=== PATIENT | male | born 1930 | race Caucasian/White ===

== ENCOUNTER 2017-08-07 01:06 | Inpatient (IN) | payer OTHER, MEDICARE ==
[2017-08-07] VITALS (14 sets, daily range): BP systolic 109–129; BP diastolic 60–65; PULSE 74–102; RESP 16–30; TEMP 97.1–99; O2SAT 95–100
[2017-08-07] MEDS: SODIUM CHLOR 0.9% 1000 ML INJ 1,000 ML IV SCH ×3 (02:36→20:48)
[2017-08-07] MEDS ORDERED: LACTULOSE SYRUP 20 GM/30 ML CUP PO PRN (02:45)
[2017-08-07] MEDS ORDERED: CHLORHEXIDINE GLUCONATE 2 % 1 PACK (2 CLOTHS) TOP PRN (02:45)
[2017-08-07] MEDS ORDERED: SODIUM CHLORIDE 0.9% FLUSH 10 ML FLUSH IV FLUSH PRN (02:45)
[2017-08-07] MEDS ORDERED: BISACODYL 10 MG SUPP RECTAL PRN (02:45)
[2017-08-07] MEDS ORDERED: MORPHINE SULFATE 2 MG/ML INJ IV PUSH PRN (02:45)
[2017-08-07] MEDS ORDERED: SENNOSIDES 8.6 MG TAB PO PRN (02:45)
[2017-08-07] MEDS ORDERED: ONDANSETRON HCL 4 MG/2 ML VIAL IV PUSH PRN (02:45)
[2017-08-07] MEDS ORDERED: MISCELLANEOUS NURSING INFORMATION XX SCH (02:45)
[2017-08-07] MEDS ORDERED: MAGNESIUM HYDROXIDE SUSP 30 ML CUP PO PRN (02:45)
[2017-08-07] MEDS ORDERED: LORazepam 2 MG/ML VIAL IV PUSH PRN (02:45)
[2017-08-07] MEDS ORDERED: ACETAMINOPHEN 325 MG TAB PO PRN (02:45)
[2017-08-07] MEDS ORDERED: RESP: ALBUTEROL 2.5 MG/IPRATROPIUM 0.5 MG NEB (PRN) INH (02:45)
--- NOTE | 2017-08-07 02:49 | HHI.HP ---
HPI Service Critical Care Medicine Primary Care Physician Aishwarya Powell DO Admission Diagnosis Diagnosis: Travel History International Travel<30 Days: No Contact w/Intl Traveler <30 Da: No Traveled to Known Affected Are: No History of Present Illness 87-year-old very pleasant gentleman with a history of hypertension, atrial fibrillation on Xarelto, COPD, lung cancer presented to emergency department at [facility] on July 25 with shortness of breath, cough and productive yellowish sputum, progressive weakness in the x-ray showing infiltrates in left lower lobes as well as the right upper. He was treated as pneumonia in an immunocompromised patient. While there he was noted to have increasing lethargy , that led to a CT scan of the head which revealed 0.7 cm right subdural hematoma with midline shift. He was transferred to intensive care unit, given vitamin K and FFP's. The case was discussed with [facility] neurosurgeon personal finance instructor Dr. Jasmine and the patient has been transferred for high level of care. Prior to transfer he received a dose of Kcentra. Review of Systems ROS Unable to obtain patient is lethargic Past Family Social History Allergies: Coded Allergies: No Known Allergies (Unverified , 08/07/17) Past Medical History Hypertension Atrial fibrillation on Xarelto COPD Lung cancer Seizure disorder Mild dementia Past Surgical History Colonoscopy Hernia repair Mastoid and middle ear procedure Tonsillectomy Vasectomy Reported Medications Albuterol DuoNeb Allopurinol Diltiazem Aricept Fluticasone Keppra Levothyroxine Phenobarbital Xarelto Potassium chloride Torsemide Active Ordered Medications Current Medications Medications (Trade) Dose Ordered Sig/Elda Route PRN Reason Start Time Stop Time Status Last Admin Dose Admin Sodium Chloride 1,000 ml @ 84 mls/hr [id number] IV 08/07/17 02:36 08/07/17 02:36 Sodium Chloride (NS Flush) 2 ml UNSCH PRN IV FLUSH FLUSH AFTER USING IV ACCESS 08/07/17 02:45 Sodium Chloride (NS Flush) 2 ml BID IV FLUSH 08/07/17 09:00 Acetaminophen (Tylenol) 650 mg Q6H PRN PO PAIN 1-5 AND/OR FEVER >101F 08/07/17 02:45 Morphine Sulfate (Morphine Inj) 2 mg Q2H PRN IV PUSH PAIN SCALE 6 TO 10 08/07/17 02:45 Famotidine (Pepcid Inj) 20 mg Q12HR IV PUSH 08/07/17 09:00 Lorazepam (Ativan Inj) 1 mg Q1H PRN IV PUSH seizure 08/07/17 02:45 Ondansetron HCl (Zofran Inj) 4 mg Q6H PRN IV PUSH NAUSEA OR VOMITING 08/07/17 02:45 Albuterol/ Ipratropium (Duoneb Neb) 1 ampule Q6HR NEB INH 08/07/17 04:00 08/07/17 03:26 Albuterol/ Ipratropium (Duoneb Neb) 1 ampule Q2HR NEB PRN INH WHEEZING 08/07/17 02:45 Miscellaneous Information 1 Q361D XX 08/07/17 02:45 Chlorhexidine Gluconate (Chlorhexidine 2% Cloth) 3 pack Taper DAILY@04 TOP 08/07/17 04:00 08/03/18 03:59 Chlorhexidine Gluconate (Chlorhexidine 2% Cloth) 3 pack UNSCH PRN TOP HYGIENIC CARE 08/07/17 02:45 Senna/Docusate Sodium (Serena-Colace) 1 tab BID PO 08/07/17 09:00 Magnesium Hydroxide (Milk Of Magnesia Liq) 30 ml Q12H PRN PO Mild constipation 08/07/17 02:45 Sennosides (Senokot) 17.2 mg Q12H PRN PO Moderate constipation 08/07/17 02:45 Bisacodyl (Dulcolax Supp) 10 mg DAILY PRN RECTAL SEVERE CONSITIPATION/ IF NPO 08/07/17 02:45 Lactulose (Lactulose Liq) 30 ml DAILY PRN PO SEVERE CONSITIPATION/ IF PO 08/07/17 02:45 Levetriacetam 100 ml @ 400 mls/hr Q12HR IV 08/07/17 09:00 Allopurinol (Zyloprim) 300 mg DAILY PO 08/07/17 09:00 Diltiazem HCl (Cardizem) 60 mg Q6HR PO 08/07/17 06:00 Donepezil HCl (Aricept) 10 mg HS PO 08/07/17 21:00 Fluticasone/ Vilanterol (Breo Ellipta 200-25 Inh) 1 puff DAILY INH 08/07/17 09:00 Levothyroxine Sodium (Synthroid) 100 mcg DAILY@0700 PO 08/07/17 07:00 Phenobarbital (PHENobarbital) 60 mg DAILY PO 08/07/17 09:00 Phenobarbital (PHENobarbital) 90 mg HS PO 08/07/17 21:00 Vancomycin HCl 1000 mg/Sodium Chloride 250 ml @ 250 mls/hr ONCE ONCE IV 08/07/17 04:00 08/07/17 04:59 Piperacillin Sod/ Tazobactam Sod 100 ml @ 200 mls/hr Q6H IV 08/07/17 03:00 08/07/17 03:00 Family History No family history significant for coronary artery disease or malignancy Social History Former smoker No alcohol or illicit drug abuse Physical Exam Vital Signs Vital Signs Date Time Temp Pulse Resp B/P (MAP) Pulse Ox O2 Delivery O2 Flow Rate FiO2 08/07/17 03:28 95 Nasal Cannula 4.00 Physical Exam GENERAL: Well-nourished, well-developed patient elderly gentleman, lethargic and confused. SKIN: Warm and dry. HEAD: Normocephalic. EYES: No scleral icterus. No injection or drainage. NECK: Supple, trachea midline. No JVD or lymphadenopathy. CARDIOVASCULAR: Regular rate and rhythm without murmurs, gallops, or rubs. RESPIRATORY: Breath sounds equal bilaterally. No accessory muscle use. Comfortable on facemask O2 GASTROINTESTINAL: Abdomen soft, non-tender, nondistended. MUSCULOSKELETAL: No cyanosis, or edema. BACK: Nontender without obvious deformity. NEURO EXAM: GCS: 14 Mental Status: Moves all 4 extremities to commands, lethargic Laboratory Laboratory Tests Test 08/07/17 03:26 08/07/17 04:29 Septic Shock Reassessment Septic shock perfusion: reassessment completed Caprini VTE Risk Assessment Caprini VTE Risk Assessment: Mod/High Risk (score >= 2) VTE Pharm Contraindication: Hemorrhage Caprini Risk Assessment Model Point Value = 1 Point Value = 2 Point Value = 3 Point Value = 5 Age 41-60 Minor surgery BMI > 25 kg/m2 Swollen legs Varicose veins or History of unexplained or recurrent spontaneous Oral contraceptives or hormone replacement Sepsis (< 1 month) Serious lung disease, including pneumonia (< 1 month) Abnormal pulmonary function Acute myocardial infarction Congestive heart failure (< 1 month) History of inflammatory bowel disease Medical patient at bed rest Age 61-74 Arthroscopic surgery Major open surgery (> 45 min) Laparoscopic surgery (> 45 min) Malignancy Confined to bed (> 72 hours) Immobilizing plaster cast Central venous access Age >= 75 History of VTE Family history of VTE Factor V Leiden Prothrombin [id number] Lupus anticoagulant Anticardiolipin antibodies Elevated serum homocysteine Heparin-induced thrombocytopenia Other congenital or acquired thrombophilia Stroke (< 1 month) Elective arthroplasty Hip, pelvis, or leg fracture Acute spinal cord injury (< 1 month) Prophylaxis Regimen Total Risk Factor Score Risk Level Prophylaxis Regimen 0-1 Low Early ambulation 2 Moderate Order ONE of the following: *Sequential Compression Device (SCD) *Heparin 5000 units SQ BID 3-4 Higher Order ONE of the following medications: *Heparin 5000 units SQ TID *Enoxaparin/Lovenox 40 mg SQ daily (WT < 150 kg, CrCl > 30 mL/min) *Enoxaparin/Lovenox 30 mg SQ daily (WT < 150 kg, CrCl > 10-29 mL/min) *Enoxaparin/Lovenox 30 mg SQ BID (WT < 150 kg, CrCl > 30 mL/min) AND/OR *Sequential Compression Device (SCD) 5 or more Highest Order ONE of the following medications: *Heparin 5000 units SQ TID (Preferred with Epidurals) *Enoxaparin/Lovenox 40 mg SQ daily (WT < 150 kg, CrCl > 30 mL/min) *Enoxaparin/Lovenox 30 mg SQ daily (WT < 150 kg, CrCl > 10-29 mL/min) *Enoxaparin/Lovenox 30 mg SQ BID (WT < 150 kg, CrCl > 30 mL/min) AND *Sequential Compression Device (SCD) Assessment and Plan Assessment and Plan Subdural hematoma - Repeat CT head a.m. - Reverse anticoagulation - Monitor neuro checks per unit protocol - PT and OT eval and treat as tolerated - Further per neurosurgery Pneumonia - Vancomycin - Zosyn - Follow-up sputum cultures and blood cultures COPD - Severe underlying COPD - DuoNeb scheduled and when necessary - Fluticasone spray daily Atrial fibrillation - Diltiazem for rate control - No anticoagulation due to acute SDH Hypertension - Labetalol hydralazine when necessary to keep SBP less than 150 Seizure disorder - Keppra - Phenobarbital - Monitor phenobarbital level DVT GI prophylaxis - Teds SCDs - No pharmacological DVT prophylaxis due to acute SDH - IV Pepcid Critical Care: The total critical care time was 35 minutes. Time to perform other separately billable procedures was not included in the critical care time. Ba Masters MD Aug 07, 2017 2:49 am
[2017-08-07] MEDS: PIPERACIL-TAZO 4.5 GM PREMIX 100 ML IV SCH ×4 (03:00→20:45)
[2017-08-07] MEDS: CHLORHEXIDINE GLUCONATE 2 % 1 PACK (2 CLOTHS) TOP SCH ×2 (03:11→19:57)
[2017-08-07] MEDS: RESP: ALBUTEROL 2.5 MG/IPRATROPIUM 0.5 MG NEB (SCH) INH ×4 (03:26→20:48)
[2017-08-07] MEDS ORDERED: VANCOMYCIN INJ 1,000 MG in SODIUM CHLORIDE 0.9% INJ 250 ML IV ONE (04:00)
[2017-08-07 04:44] LABS: AUTOMATED NEUTROPHIL # 4.8 TH/MM3 (1.8-7.7); BASOPHIL % 0.4 % (0.0-2.0); EOSINOPHIL # 0.1 TH/MM3 (0-0.4); EOSINOPHIL % 1.2 % (0.0-4.0); HEMATOCRIT 32.9 % (39.0-51.0); HEMOGLOBIN 11.2 GM/DL (13.0-17.0); LYMPH % 8.9 % (9.0-44.0); LYMPHOCYTE # 0.5 TH/MM3 (1.0-4.8); MEAN CELL VOLUME 102.9 FL (80.0-100.0); MEAN PLATELET VOLUME 8.2 FL (7.0-11.0); MONO % 9.6 % (0.0-8.0); MONOCYTE # 0.6 TH/MM3 (0-0.9); NEUT % 79.9 % (16.0-70.0); PLATELET COUNT 140 TH/MM3 (150-450); RED CELL DISTRIBUTION WIDTH 17.9 % (11.6-17.2); WHITE BLOOD COUNT 6.1 TH/MM3 (4.0-11.0)
[2017-08-07 04:51] LABS: INTERNATIONAL NORMALIZED RATIO 1.3 RATIO; PROTHROMBIN TIME - PATIENT 12.7 SEC (9.8-11.6)
[2017-08-07 05:09] LABS: ALBUMIN 3.1 GM/DL (3.4-5.0); AST (GOT) 25 U/L (15-37); BICARBONATE 34.7 MEQ/L (21.0-32.0); BLOOD UREA NITROGEN 17 MG/DL (7-18); CALCIUM 8.9 MG/DL (8.5-10.1); CHLORIDE 99 MEQ/L (98-107); CREATININE 0.79 MG/DL (0.60-1.30); GLOMERULAR FILTRATION RATE 93 ML/MIN (>89); GLUCOSE,RANDOM 88 MG/DL (74-106); MAGNESIUM 2.3 MG/DL (1.5-2.5); SODIUM (NA) 139 MEQ/L (136-145)
[2017-08-07 05:10] LABS: ALT (GPT) 25 U/L (12-78)
[2017-08-07 05:12] LABS: ALKALINE PHOSPHATASE 165 U/L (45-117); PHOSPHORUS 2.3 MG/DL (2.5-4.9); TOTAL BILIRUBIN ADULT 0.4 MG/DL (0.2-1.0); TOTAL PROTEIN 7.5 GM/DL (6.4-8.2)
[2017-08-07] MEDS: DILTIAZEM HCL 60 MG TAB PO SCH ×3 (06:04→18:00)
[2017-08-07] MEDS: LEVOTHYROXINE SODIUM 100 MCG TAB PO SCH (06:04)
--- NOTE | 2017-08-07 06:12 | RADRPT ---
EXAM DATE/TIME: 08/07/2017 05:25 [facility] COMPARISON: No previous studies available for comparison. INDICATIONS : Short of breath. MEDICAL HISTORY : None. SURGICAL HISTORY : None. ENCOUNTER: Initial ACUITY: 1 day PAIN SCORE: 0/10 LOCATION: Bilateral chest FINDINGS: Ill-defined non-consolidative airspace infiltrate in the right upper lung. Hazy opacity at the right lung base with loss of delineation of the right hemidiaphragm suggesting associated pleural effusion . Some patchy infiltrates at the left lung base. The heart is upper limits normal size. CONCLUSION: Bilateral infiltrates, right upper and left lower, and probable right pleural effusion. Aden Ramirez MD on August 07, 2017 at 6:10 Board Certified Radiologist. This report was verified electronically.
--- NOTE | 2017-08-07 09:10 | PD.CONS ---
(Stew Jasmine MD) HPI Consult Requested By Primary Care Physician Aishwarya Powell DO (Stew Jasmine MD) Service Neurosurgery Consult Requested By Intensive care physician Reason for Consult Subdural hematoma History of Present Illness Mr. Cai is a 87-year-old male. History was obtained mostly from his medical records as the patient cannot give much medical history due to his current clinical condition. The patient has history of dementia, hypertension, atrial fibrillation on Xarelto, lung cancer, and COPD. He apparently presented to [facility] a couple weeks ago for pneumonia. During his hospitalization he was noted to become more lethargic and a CT Brain showed a 0.7 cm right subdural hematoma with midline shift and thus was transferred to [place] for neurosurgical evaluation. Prior to his transfer however he was reported to have received a dose of K-Centra. He is currently in the intensive care unit, late morning today prior to seeing the patient, he was noted to have a change in mental status. He underwent a stat CT scan of his head which showed a chronic right subdural hygroma with 5 mm midline shift. The patient is currently confused, lethargic. He is not consistently following commands. (Tete Hogue) Review of Systems ROS Limitations: Altered Mental Status (Tete Hogue) Past Family Social History Allergies: Coded Allergies: No Known Allergies (Unverified , 08/07/17) Past Medical History Per EMR Hypertension Atrial fibrillation on Xarelto COPD Lung cancer Seizure disorder Mild dementia Past Surgical History Per his electronic medical record Colonoscopy Hernia repair Mastoid and middle ear procedure Tonsillectomy Vasectomy Reported Medications Per Reported Medications in his EMR Albuterol DuoNeb Allopurinol Diltiazem Aricept Fluticasone Keppra Levothyroxine Phenobarbital Xarelto Potassium chloride Torsemide Active Ordered Medications Current Medications Medications (Trade) Dose Ordered Sig/Elda Route PRN Reason Start Time Stop Time Status Last Admin Dose Admin Sodium Chloride 1,000 ml @ 84 mls/hr [id number] IV 08/07/17 02:36 08/07/17 02:36 Sodium Chloride (NS Flush) 2 ml UNSCH PRN IV FLUSH FLUSH AFTER USING IV ACCESS 08/07/17 02:45 Sodium Chloride (NS Flush) 2 ml BID IV FLUSH 08/07/17 09:00 08/07/17 09:57 Acetaminophen (Tylenol) 650 mg Q6H PRN PO PAIN 1-5 AND/OR FEVER >101F 08/07/17 02:45 Morphine Sulfate (Morphine Inj) 2 mg Q2H PRN IV PUSH PAIN SCALE 6 TO 10 08/07/17 02:45 Famotidine (Pepcid Inj) 20 mg Q12HR IV PUSH 08/07/17 09:00 08/07/17 09:56 Lorazepam (Ativan Inj) 1 mg Q1H PRN IV PUSH seizure 08/07/17 02:45 08/07/17 14:42 Ondansetron HCl (Zofran Inj) 4 mg Q6H PRN IV PUSH NAUSEA OR VOMITING 08/07/17 02:45 Albuterol/ Ipratropium (Duoneb Neb) 1 ampule Q6HR NEB INH 08/07/17 04:00 08/07/17 07:53 Albuterol/ Ipratropium (Duoneb Neb) 1 ampule Q2HR NEB PRN INH WHEEZING 08/07/17 02:45 Miscellaneous Information 1 Q361D XX 08/07/17 02:45 Chlorhexidine Gluconate (Chlorhexidine 2% Cloth) 3 pack Taper DAILY@04 TOP 08/07/17 04:00 08/03/18 03:59 Chlorhexidine Gluconate (Chlorhexidine 2% Cloth) 3 pack UNSCH PRN TOP HYGIENIC CARE 08/07/17 02:45 Senna/Docusate Sodium (Serena-Colace) 1 tab BID PO 08/07/17 09:00 08/07/17 09:57 Magnesium Hydroxide (Milk Of Magnesia Liq) 30 ml Q12H PRN PO Mild constipation 08/07/17 02:45 Sennosides (Senokot) 17.2 mg Q12H PRN PO Moderate constipation 08/07/17 02:45 Bisacodyl (Dulcolax Supp) 10 mg DAILY PRN RECTAL SEVERE CONSITIPATION/ IF NPO 08/07/17 02:45 Lactulose (Lactulose Liq) 30 ml DAILY PRN PO SEVERE CONSITIPATION/ IF PO 08/07/17 02:45 Levetriacetam 100 ml @ 400 mls/hr Q12HR IV 08/07/17 09:00 08/07/17 09:56 Allopurinol (Zyloprim) 300 mg DAILY PO 08/07/17 09:00 08/07/17 09:57 Diltiazem HCl (Cardizem) 60 mg Q6HR PO 08/07/17 06:00 08/07/17 06:04 Donepezil HCl (Aricept) 10 mg HS PO 08/07/17 21:00 Fluticasone/ Vilanterol (Breo Ellipta 200-25 Inh) 1 puff DAILY INH 08/07/17 09:00 08/07/17 09:56 Levothyroxine Sodium (Synthroid) 100 mcg DAILY@0700 PO 08/07/17 07:00 08/07/17 06:04 Phenobarbital (PHENobarbital) 60 mg DAILY PO 08/07/17 09:00 08/07/17 09:57 Phenobarbital (PHENobarbital) 90 mg HS PO 08/07/17 21:00 Piperacillin Sod/ Tazobactam Sod 100 ml @ 200 mls/hr Q6H IV 08/07/17 03:00 08/07/17 14:43 Family History Unable to obtain from patient due to his clinical condition Social History Unable to obtain from patient due to clinical condition (Tete Hogue) Physical Exam Vital Signs Vital Signs Date Time Temp Pulse Resp B/P (MAP) Pulse Ox O2 Delivery O2 Flow Rate FiO2 08/07/17 07:54 96 Nasal Cannula 3.00 08/07/17 06:00 94 08/07/17 04:00 97.7 90 30 129/60 (83) 99 08/07/17 04:00 90 08/07/17 03:28 95 Nasal Cannula 4.00 08/07/17 02:00 94 Physical Exam Mr Cai is confused, lethargic, mumbling incomprehensible words. Not consistently following commands. Neuro: Stuporosec. Cranial nerve examination: pupils equal, round, and reactive to light. Facial motor appear grossly symmetrical at rest. Otherwise cannot assess due to clinical condition. HENT: Normocephalic, atraumatic Eyes: Pupils equal round. Nonicteric sclera. Neck: soft, supple Extremities: moves extremities, cannot assess detail exam due to clinical condition. Sensory examination: withdraws to pain Deep tendon reflexes are 1+ biceps, triceps, and brachioradialis, bilaterally, in the upper extremities. In the lower extremities, the patellar and Achilles are 1+, bilaterally. There is a bilateral plantar flexion response. There is no clonus. Cerebellar: cannot assess due to clinical condition Lungs: clear, nonlabored breathing, no wheezing heart. regular rate and rhythm Skin warm and dry Laboratory Laboratory Tests Test 08/07/17 03:26 08/07/17 04:29 Nasal Screen MRSA (PCR) MRSA NOT DETECTED White Blood Count 6.1 Red Blood Count 3.20 Hemoglobin 11.2 Hematocrit 32.9 Mean Corpuscular Volume 102.9 Mean Corpuscular Hemoglobin 35.0 Mean Corpuscular Hemoglobin Concent 34.0 Red Cell Distribution Width 17.9 Platelet Count 140 Mean Platelet Volume 8.2 Neutrophils (%) (Auto) 79.9 Lymphocytes (%) (Auto) 8.9 Monocytes (%) (Auto) 9.6 Eosinophils (%) (Auto) 1.2 Basophils (%) (Auto) 0.4 Neutrophils # (Auto) 4.8 Lymphocytes # (Auto) 0.5 Monocytes # (Auto) 0.6 Eosinophils # (Auto) 0.1 Basophils # (Auto) 0.0 CBC Comment DIFF FINAL Differential Comment Prothrombin Time 12.7 Prothromb Time International Ratio 1.3 Blood Urea Nitrogen 17 Creatinine 0.79 Random Glucose 88 Total Protein 7.5 Albumin 3.1 Calcium Level 8.9 Phosphorus Level 2.3 Magnesium Level 2.3 Alkaline Phosphatase 165 Aspartate Amino Transf (AST/SGOT) 25 Alanine Aminotransferase (ALT/SGPT) 25 Total Bilirubin 0.4 Sodium Level 139 Potassium Level 3.9 Chloride Level 99 Carbon Dioxide Level 34.7 Anion Gap 5 Estimat Glomerular Filtration Rate 93 Phenobarbital Level 49.0 Date/Time Source Procedure Growth Status 08/07/17 04:29 Blood Peripheral Aerobic Blood Culture Pending Received 08/07/17 04:29 Blood Peripheral Anaerobic Blood Culture Pending Received (Stew Jasmine MD) Physical Exam General: The patient is confused, lethargic, mumbling. No acute distress. Not consistently following commands. Neuro: Lethargic. Cranial nerve examination: pupils equal, round, and reactive to light. Facial motor appear grossly symmetrical at rest. Otherwise cannot assess due to clinical condition. HENT: Normocephalic, atraumatic Eyes: Pupils equal round. Nonicteric sclera. Neck: soft, supple Extremities: moves extremities, cannot assess detail exam due to clinical condition. Sensory examination: withdraws to pain Deep tendon reflexes are 1+ biceps, triceps, and brachioradialis, bilaterally, in the upper extremities. In the lower extremities, the patellar and Achilles are 1+, bilaterally. There is a bilateral plantar flexion response. There is no clonus. Cerebellar: cannot assess due to clinical condition Lungs: clear, nonlabored breathing, no wheezing (Tete Hogue) Result Diagram: 08/07/1742808/07/17428 Imaging Last Impressions Chest X-Ray 08/07/17 0600 Signed Impressions: Service Date/Time: Monday, August 07, 2017 05:25 - CONCLUSION: Bilateral infiltrates, right upper and left lower, and probable right pleural effusion. Aden Ramirez MD Head CT 08/07/17 0000 Signed Impressions: Service Date/Time: Monday, August 07, 2017 12:14 - CONCLUSION: 1. Chronic right-sided subdural hygroma approximately 1.2 cm of separation. 2. There is mass effect and midline shift to the left by approximately 5 mm. 3. No acute intracranial hemorrhage. 4. Bilateral cortical atrophy. Andre Michele MD (Tete Hogue) Attending Statement I reviewed the patient's CT of the brain from [facility]. I have also ordered a follow-up CT of the brain at [place] which remains unchanged. There is no indication for surgical intervention. The patient is encephalopathic. Need to work Other etiologies for encephalopathy. Recommend EEG. Recommend neurology consultation Pulmonary. aggressive pulmonary toilette, nasotracheal suction, and breathing treatments with nebulizers. Nutrition. Oral diet Renal. monitor closely urine output, BUN and creatinine Endocrine. Monitor serial Acu checks and SSI as needed in detail ID monitor for signs of infection Protonix for stress ulcer prophylaxis (Stew Jasmine MD) Stew Jasmine MD Aug 07, 2017 09:10 Tete Hogue Aug 07, 2017 15:29
[2017-08-07] MEDS: levETIRAcetam INJ 100 ML IV SCH ×2 (09:56→20:45)
[2017-08-07] MEDS: FAMOTIDINE 20 MG/2 ML VIAL IV PUSH SCH ×2 (09:56→20:44)
[2017-08-07] MEDS: FLUTICASONE 200 MCG/VILANTEROL 25 MCG INHALER INH SCH (09:56)
[2017-08-07] MEDS: ALLOPURINOL 300 MG TAB PO SCH (09:57)
[2017-08-07] MEDS: SODIUM CHLORIDE 0.9% FLUSH 10 ML FLUSH IV FLUSH SCH ×2 (09:57→20:44)
[2017-08-07] MEDS: DOCUSATE SODIUM 50 MG/SENNA 8.6 MG TAB PO SCH ×3 (09:57→21:00)
--- NOTE | 2017-08-07 12:29 | RADRPT ---
EXAM DATE/TIME: 08/07/2017 12:14 [facility] COMPARISON: No previous studies available for comparison. INDICATIONS : Evaluate subdural hematoma RADIATION DOSE: 37.14 CTDIvol (mGy) MEDICAL HISTORY : Cardiovascular disease. Seizures. Carcinoma, lung. SURGICAL HISTORY : None. ENCOUNTER: Subsequent ACUITY: 1 day PAIN SCALE: Non-responsive LOCATION: cranial TECHNIQUE: Multiple contiguous axial images were obtained of the head. Using automated exposure control and adj ustment of the mA and/or kV according to patient size, radiation dose was kept as low as reasonably a chievable to obtain optimal diagnostic quality images. DICOM format image data is available electro nically for review and comparison. FINDINGS: CEREBRUM: The ventricles are normal in size for patient's age. There is diffuse bilateral cortical atrophy. The re is a chronic right-sided subdural hygroma is approximately 1.0-1.2 cm of separation. No acute intr acranial hemorrhage is seen. There is a mass effect and midline shift to the left by approximately 5 mm. POSTERIOR FOSSA: The cerebellum and brainstem are intact. The 4th ventricle is midline. The cerebellopontine angle i s unremarkable. EXTRACRANIAL: The visualized portion of the orbits is intact. Chronic left maxillary sinus disease. SKULL: The calvaria is intact. No evidence of skull fracture. CONCLUSION: 1. Chronic right-sided subdural hygroma approximately 1.2 cm of separation. 2. There is mass effect and midline shift to the left by approximately 5 mm. 3. No acute intracranial hemorrhage. 4. Bilateral cortical atrophy. Andre Michele MD on August 07, 2017 at 12:25 Board Certified Radiologist. This report was verified electronically.
--- NOTE | 2017-08-07 15:41 | PD.CONS ---
History of Present Illness Service Neurology Consult Requested By nsx Reason for Consult encephalopathy Primary Care Physician Aishwarya Powell DO History of Present Illness 87-year-old transferred from [facility] for sdh tx, on xarelto for afib. cxr showing bilateral infiltrates. ccm and nsx following. based on medication list, appears to have a hx of seizures and cognitive impairment. medical hx/meds obtained from medical chart. pt in stupor and unable to provide any information. Review of Systems ROS Unable to obtain patient is lethargic Past Family Social History Allergies: Coded Allergies: No Known Allergies (Unverified , 08/07/17) Past Medical History Hypertension Atrial fibrillation on Xarelto COPD Lung cancer Seizure disorder Mild dementia Past Surgical History Colonoscopy Hernia repair Mastoid and middle ear procedure Tonsillectomy Vasectomy Reported Medications Albuterol DuoNeb Allopurinol Diltiazem Aricept Fluticasone Keppra Levothyroxine Phenobarbital Xarelto Potassium chloride Torsemide Family History unavailable from pt Social History Former smoker No alcohol or illicit drug abuse Review of Systems All other ROS: Unable to obtain Past Family Social History Allergies: Coded Allergies: No Known Allergies (Unverified , 08/07/17) Active Ordered Medications Current Medications Medications (Trade) Dose Ordered Sig/Elda Route Start Time Stop Time Status Last Admin Sodium Chloride 1,000 ml @ 84 mls/hr [id number] IV 08/07/17 02:36 08/07/17 02:36 (NS Flush) 2 ml UNSCH PRN IV FLUSH 08/07/17 02:45 (NS Flush) 2 ml BID IV FLUSH 08/07/17 09:00 08/07/17 09:57 (Tylenol) 650 mg Q6H PRN PO 08/07/17 02:45 (Morphine Inj) 2 mg Q2H PRN IV PUSH 08/07/17 02:45 (Pepcid Inj) 20 mg Q12HR IV PUSH 08/07/17 09:00 08/07/17 09:56 (Ativan Inj) 1 mg Q1H PRN IV PUSH 08/07/17 02:45 08/07/17 14:42 (Zofran Inj) 4 mg Q6H PRN IV PUSH 08/07/17 02:45 (Duoneb Neb) 1 ampule Q6HR NEB INH 08/07/17 04:00 08/07/17 07:53 (Duoneb Neb) 1 ampule Q2HR NEB PRN INH 08/07/17 02:45 Miscellaneous Information 1 Q361D XX 08/07/17 02:45 (Chlorhexidine 2% Cloth) 3 pack Taper DAILY@04 TOP 08/07/17 04:00 08/03/18 03:59 (Chlorhexidine 2% Cloth) 3 pack UNSCH PRN TOP 08/07/17 02:45 (Serena-Colace) 1 tab BID PO 08/07/17 09:00 08/07/17 09:57 (Milk Of Magnesia Liq) 30 ml Q12H PRN PO 08/07/17 02:45 (Senokot) 17.2 mg Q12H PRN PO 08/07/17 02:45 (Dulcolax Supp) 10 mg DAILY PRN RECTAL 08/07/17 02:45 (Lactulose Liq) 30 ml DAILY PRN PO 08/07/17 02:45 Levetriacetam 100 ml @ 400 mls/hr Q12HR IV 08/07/17 09:00 08/07/17 09:56 (Zyloprim) 300 mg DAILY PO 08/07/17 09:00 08/07/17 09:57 (Cardizem) 60 mg Q6HR PO 08/07/17 06:00 08/07/17 06:04 (Aricept) 10 mg HS PO 08/07/17 21:00 (Breo Ellipta 200-25 Inh) 1 puff DAILY INH 08/07/17 09:00 08/07/17 09:56 (Synthroid) 100 mcg DAILY@0700 PO 08/07/17 07:00 08/07/17 06:04 (PHENobarbital) 60 mg DAILY PO 08/07/17 09:00 08/07/17 09:57 (PHENobarbital) 90 mg HS PO 08/07/17 21:00 Piperacillin Sod/ Tazobactam Sod 100 ml @ 200 mls/hr Q6H IV 08/07/17 03:00 08/07/17 14:43 Exam I&O / VS 08/07/17 08/07/17 08/08/17 15:00 23:00 07:00 Intake Total 200 ml Balance 200 ml IV Total 200 ml Vital Signs Date Time Temp Pulse Resp B/P (MAP) Pulse Ox O2 Delivery O2 Flow Rate FiO2 08/07/17 12:00 74 08/07/17 10:00 99 08/07/17 08:00 98.2 91 24 118/65 (82) 97 08/07/17 08:00 84 08/07/17 07:54 96 Nasal Cannula 3.00 08/07/17 07:00 96 Nasal Cannula 4.00 08/07/17 06:00 94 08/07/17 04:00 97.7 90 30 129/60 (83) 99 08/07/17 04:00 90 08/07/17 03:28 95 Nasal Cannula 4.00 08/07/17 02:00 94 Exam Comments lethargic, stuporous, not following, not verbal, partially opens eyes to tactile stimuli, open mouth breathing, ou 3.5mm sluggish, mild doll's with mild left gaze deviation, able to localize with all 4 with tactile stimuli, mild praveen le edema Review/Management Diagnosis/Plan: (1) Encephalopathy, metabolic ICD Codes: G93.41 - Metabolic encephalopathy Status: Acute Plan: likely 2/2 pneumonia, phb toxicity? +/- sdh recs eeg check nh3 optimize pulm status- per ccm hold phb, follow levels follow exam (2) Pneumonia ICD Codes: J18.9 - Pneumonia, unspecified organism Status: Acute Plan: iv abx ccm (3) SDH (subdural hematoma) ICD Codes: I62.00 - Nontraumatic subdural hemorrhage, unspecified Status: Chronic Plan: nsx (4) Afib ICD Codes: I48.91 - Unspecified atrial fibrillation (5) Seizure ICD Codes: R56.9 - Unspecified convulsions Status: Chronic Plan: eeg Problem Qualifiers (1) Afib: Qualified Codes: I48.2 - Chronic atrial fibrillation Sammy Amato MD Aug 07, 2017 15:41
[2017-08-07] MEDS: DONEPEZIL HCL 5 MG TAB PO SCH ×2 (20:44→21:00)
[2017-08-08] VITALS (17 sets, daily range): BP systolic 117–142; BP diastolic 55–89; PULSE 86–117; RESP 20–35; TEMP 97.4–98.4; O2SAT 90–100
[2017-08-08] MEDS: DILTIAZEM HCL 60 MG TAB PO SCH ×4 (00:47→17:42)
[2017-08-08] MEDS: PIPERACIL-TAZO 4.5 GM PREMIX 100 ML IV SCH ×4 (03:41→20:09)
[2017-08-08] MEDS: RESP: ALBUTEROL 2.5 MG/IPRATROPIUM 0.5 MG NEB (SCH) INH ×4 (04:12→20:46)
[2017-08-08 05:29] LABS: BASOPHIL # 0.1 TH/MM3 (0-0.2); BASOPHIL % 0.9 % (0.0-2.0); EOSINOPHIL # 0.1 TH/MM3 (0-0.4); EOSINOPHIL % 1.4 % (0.0-4.0); HEMATOCRIT 33.6 % (39.0-51.0); HEMOGLOBIN 10.6 GM/DL (13.0-17.0); LYMPHOCYTE # 0.7 TH/MM3 (1.0-4.8); MEAN CELL VOLUME 104.4 FL (80.0-100.0); MEAN CORPUSCULAR HEMOGLOBIN 32.9 PG (27.0-34.0); MEAN CORPUSCULAR HGB CONC 31.5 % (32.0-36.0); MEAN PLATELET VOLUME 8.7 FL (7.0-11.0); MONO % 9.4 % (0.0-8.0); MONOCYTE # 0.7 TH/MM3 (0-0.9); NEUT % 79.3 % (16.0-70.0); PLATELET COUNT 128 TH/MM3 (150-450); RED BLOOD COUNT 3.22 MIL/MM3 (4.50-5.90); RED CELL DISTRIBUTION WIDTH 18.2 % (11.6-17.2); WHITE BLOOD COUNT 7.5 TH/MM3 (4.0-11.0)
[2017-08-08] MEDS: LEVOTHYROXINE SODIUM 100 MCG TAB PO SCH ×2 (05:34→19:42)
[2017-08-08 05:40] LABS: INTERNATIONAL NORMALIZED RATIO 1.6 RATIO; PROTHROMBIN TIME - PATIENT 15.8 SEC (9.8-11.6)
[2017-08-08 05:52] LABS: AST (GOT) 19 U/L (15-37); BLOOD UREA NITROGEN 17 MG/DL (7-18); CALCIUM 8.8 MG/DL (8.5-10.1); CHLORIDE 104 MEQ/L (98-107); CREATININE 0.67 MG/DL (0.60-1.30); GLOMERULAR FILTRATION RATE 112 ML/MIN (>89); GLUCOSE,RANDOM 82 MG/DL (74-106); MAGNESIUM 2.4 MG/DL (1.5-2.5); SODIUM (NA) 143 MEQ/L (136-145)
[2017-08-08 05:56] LABS: ALKALINE PHOSPHATASE 157 U/L (45-117); ALT (GPT) 23 U/L (12-78); PHOSPHORUS 2.1 MG/DL (2.5-4.9); TOTAL BILIRUBIN ADULT 0.4 MG/DL (0.2-1.0); TOTAL PROTEIN 7.2 GM/DL (6.4-8.2)
--- NOTE | 2017-08-08 07:43 | HHI.PR ---
Review/Management Diagnosis/Plan: (1) Encephalopathy, metabolic ICD Codes: G93.41 - Metabolic encephalopathy Status: Acute Plan: likely 2/2 pneumonia, phb toxicity? +/- sdh recs eeg-pending phb still elevated. pt does appears more alert this am check nh3-nml optimize pulm status- per ccm follow exam (2) Pneumonia ICD Codes: J18.9 - Pneumonia, unspecified organism Status: Acute Plan: iv abx [facility] (3) SDH (subdural hematoma) ICD Codes: I62.00 - Nontraumatic subdural hemorrhage, unspecified Status: Chronic Plan: nsx (4) Afib ICD Codes: I48.91 - Unspecified atrial fibrillation (5) Seizure ICD Codes: R56.9 - Unspecified convulsions Status: Chronic Plan: eeg Subjective Subjective Comments No acute events reported Active Medications Current Medications Medications (Trade) Dose Ordered Sig/Elda Route Start Time Stop Time Status Last Admin Sodium Chloride 1,000 ml @ 84 mls/hr [id number] IV 08/07/17 02:36 08/07/17 20:48 (NS Flush) 2 ml UNSCH PRN IV FLUSH 08/07/17 02:45 (NS Flush) 2 ml BID IV FLUSH 08/07/17 09:00 08/07/17 20:44 (Tylenol) 650 mg Q6H PRN PO 08/07/17 02:45 (Morphine Inj) 2 mg Q2H PRN IV PUSH 08/07/17 02:45 (Pepcid Inj) 20 mg Q12HR IV PUSH 08/07/17 09:00 08/07/17 20:44 (Ativan Inj) 1 mg Q1H PRN IV PUSH 08/07/17 02:45 08/07/17 14:42 (Zofran Inj) 4 mg Q6H PRN IV PUSH 08/07/17 02:45 (Duoneb Neb) 1 ampule Q6HR NEB INH 08/07/17 04:00 08/08/17 04:12 (Duoneb Neb) 1 ampule Q2HR NEB PRN INH 08/07/17 02:45 Miscellaneous Information 1 Q361D XX 08/07/17 02:45 (Chlorhexidine 2% Cloth) 3 pack Taper DAILY@04 TOP 08/07/17 04:00 1/19/19 03:59 (Chlorhexidine 2% Cloth) 3 pack UNSCH PRN TOP 08/07/17 02:45 (Serena-Colace) 1 tab BID PO 08/07/17 09:00 08/07/17 09:57 (Milk Of Magnesia Liq) 30 ml Q12H PRN PO 08/07/17 02:45 (Senokot) 17.2 mg Q12H PRN PO 08/07/17 02:45 (Dulcolax Supp) 10 mg DAILY PRN RECTAL 08/07/17 02:45 (Lactulose Liq) 30 ml DAILY PRN PO 08/07/17 02:45 Levetriacetam 100 ml @ 400 mls/hr Q12HR IV 08/07/17 09:00 08/07/17 20:45 (Zyloprim) 300 mg DAILY PO 08/07/17 09:00 08/07/17 09:57 (Cardizem) 60 mg Q6HR PO 08/07/17 06:00 08/08/17 05:34 (Aricept) 10 mg HS PO 08/07/17 21:00 (Breo Ellipta 200-25 Inh) 1 puff DAILY INH 08/07/17 09:00 08/07/17 09:56 (Synthroid) 100 mcg DAILY@0700 PO 08/07/17 07:00 08/08/17 05:34 Piperacillin Sod/ Tazobactam Sod 100 ml @ 200 mls/hr Q6H IV 08/07/17 03:00 08/08/17 03:41 Allergies Allergies Coded Allergies No Known Allergies (Unverified08/07/17) Review of Systems All other ROS: Unable to obtain Exam I&O / VS Vital Signs Date Time Temp Pulse Resp B/P (MAP) Pulse Ox O2 Delivery O2 Flow Rate FiO2 08/08/17 06:00 108 08/08/17 04:52 94 Simple Mask 9.00 08/08/17 04:00 97.5 108 20 137/76 (96) 100 08/08/17 04:00 106 08/08/17 02:00 96 08/08/17 00:00 108 08/08/17 00:00 97.4 108 29 138/89 (105) 95 08/07/17 22:00 102 08/07/17 20:50 95 Nasal Cannula 3.00 08/07/17 20:00 90 08/07/17 20:00 97.1 90 25 121/62 (81) 100 08/07/17 19:00 98 Nasal Cannula 5.00 08/07/17 18:00 81 08/07/17 16:00 88 08/07/17 16:00 99.0 82 16 109/62 (78) 99 08/07/17 14:00 96 08/07/17 12:00 74 08/07/17 12:00 98.4 74 18 109/64 (79) 99 08/07/17 10:00 99 08/07/17 08:00 98.2 91 24 118/65 (82) 97 08/07/17 08:00 84 08/07/17 07:54 96 Nasal Cannula 3.00 Exam Comments more alert, appears to follow occasionally- closes eyes, open mouth breathing on non-rebreather, ou 3.5mm sluggish, mild doll's with mild left gaze deviation , able to localize with all 4 with tactile stimuli, mild praveen le edema Objective Micro and Labs Laboratory Tests Test 08/07/17 18:26 08/08/17 05:09 Erythrocyte Sedimentation Rate 57 Ammonia 29 C-Reactive Protein 4.00 Phenobarbital Level 44.7 43.9 White Blood Count 7.5 Red Blood Count 3.22 Hemoglobin 10.6 Hematocrit 33.6 Mean Corpuscular Volume 104.4 Mean Corpuscular Hemoglobin 32.9 Mean Corpuscular Hemoglobin Concent 31.5 Red Cell Distribution Width 18.2 Platelet Count 128 Mean Platelet Volume 8.7 Neutrophils (%) (Auto) 79.3 Lymphocytes (%) (Auto) 9.0 Monocytes (%) (Auto) 9.4 Eosinophils (%) (Auto) 1.4 Basophils (%) (Auto) 0.9 Neutrophils # (Auto) 6.0 Lymphocytes # (Auto) 0.7 Monocytes # (Auto) 0.7 Eosinophils # (Auto) 0.1 Basophils # (Auto) 0.1 CBC Comment DIFF FINAL Differential Comment Prothrombin Time 15.8 Prothromb Time International Ratio 1.6 Activated Partial Thromboplast Time 34.8 Blood Urea Nitrogen 17 Creatinine 0.67 Random Glucose 82 Total Protein 7.2 Albumin 3.0 Calcium Level 8.8 Phosphorus Level 2.1 Magnesium Level 2.4 Alkaline Phosphatase 157 Aspartate Amino Transf (AST/SGOT) 19 Alanine Aminotransferase (ALT/SGPT) 23 Total Bilirubin 0.4 Sodium Level 143 Potassium Level 3.9 Chloride Level 104 Carbon Dioxide Level 33.0 Anion Gap 6 Estimat Glomerular Filtration Rate 112 Date/Time Source Procedure Growth Status 08/07/17 04:29 Blood Peripheral Aerobic Blood Culture Pending Received 08/07/17 04:29 Blood Peripheral Anaerobic Blood Culture Pending Received Problem Qualifiers (1) Afib: Qualified Codes: I48.2 - Chronic atrial fibrillation Sammy Amato MD Aug 08, 2017 07:43
--- NOTE | 2017-08-08 08:19 | MG ---
cc: ANTONIO MCKEON M.D. Lab No: Date: 08/07/2017 Age: 87 Sex: M INDICATION An EEG was obtained on this 87-year-old patient being evaluated for altered mental status, seizure, subdural hygromas. MEDICATIONS Medications include Keppra, Phenobarbital, etc. DESCRIPTION The patient is awake and asleep. The study is showing a mixture of rhythms. There is fairly prominent beta activity diffusely. There are some alpha and theta rhythms bilaterally and there is some delta activity as well. The sleep study shows probable more of the slower rhythms on the left than right, though the asymmetry is mild. The background is reactive and the patient awakens briefly. Photic stimulation showed no change. INTERPRETATION Abnormal EEG because of mild slowing bilaterally, possibly left more than right, but no epileptiform features are present. The findings suggest mild diffuse disturbance of cerebral function and raise the possibility of a left hemisphere structural abnormality as well. Antonio Mckeon MD OFC/BT /7:56 AM /8:12 AM
[2017-08-08] MEDS: FLUTICASONE 200 MCG/VILANTEROL 25 MCG INHALER INH SCH (08:21)
[2017-08-08] MEDS: ALLOPURINOL 300 MG TAB PO SCH (08:21)
[2017-08-08] MEDS: DOCUSATE SODIUM 50 MG/SENNA 8.6 MG TAB PO SCH ×2 (08:21→19:41)
[2017-08-08] MEDS: levETIRAcetam INJ 100 ML IV SCH ×2 (10:18→20:10)
[2017-08-08] MEDS: FAMOTIDINE 20 MG/2 ML VIAL IV PUSH SCH ×2 (10:18→20:10)
[2017-08-08] MEDS: SODIUM CHLORIDE 0.9% FLUSH 10 ML FLUSH IV FLUSH SCH ×2 (10:18→20:10)
--- NOTE | 2017-08-08 11:58 | HHI.CCPN ---
Subjective Remarks/Hospital Course 08/07: 87-year-old very pleasant gentleman with a history of hypertension, atrial fibrillation on Xarelto, COPD, lung cancer presented to emergency department at [facility] on July 25 with shortness of breath, cough and productive yellowish sputum, progressive weakness in the x-ray showing infiltrates in left lower lobes as well as the right upper. He was treated as pneumonia in an immunocompromised patient. While there he was noted to have increasing lethargy, that led to a CT scan of the head which revealed 0.7 cm right subdural hematoma with midline shift. He was transferred to intensive care unit, given vitamin K and FFP's. The case was discussed with [facility] neurosurgeon architecture consultant Dr. Jasmine and the patient has been transferred for high level of care. Prior to transfer he received a dose of Kcentra. 08/08: No events over the night. Patient remains lethargic, on face mask. Afebrile, I/O 1235/300. Son on his way here from [place]. Objective Vital Signs Date Time Temp Pulse Resp B/P (MAP) Pulse Ox O2 Delivery O2 Flow Rate FiO2 08/08/17 09:08 99 Simple Mask 10.00 08/08/17 08:00 105 08/08/17 08:00 98.2 30 133/64 (87) Intake and Output 08/08/17 08/08/17 08/09/17 08:00 16:00 00:00 Intake Total 60 ml Balance 60 ml Result Diagram: 08/08/17 0509 08/08/17 0509 Objective Remarks General - elderly gentleman, lethargic, ill appearing HEENT - pupils equal, reactive, sclerae anicteric, neck supple, no nuchal rigidity, neck veins not distended, dry MM CV - regular S1, S2, no murmurs Chest - scattered coarse breath sounds b/l, good air entry, no wheezes Abdomen - soft, non-tender, non-distended, BS present, no hepatomegaly, no splenomegaly Skin - multiple extensive bruises Extremities - warm and well perfused, 3+ edema, decreased peripheral pulses, no clubbing Neuro - lethargic, arousable, following some commands, protects airway A/P Assessment and Plan 1. Chronic subdural hematoma 2. Acute encephalopathy - secondary to above vs toxic metabolic 3. Possible pneumonia 4. COPD - not exacerbated 5. Atrial fibrillation - rate controlled 6. Hypertension 7. Seizure disorder 8. Coagulopathy 1. Continue supplemental O2 as needed to keep SpO2 above 92% 2. Bronchodilators 3. Give 2 units FFP 4. Continue to hold aspirin 5. On vanco and pip/tazo 6. Neuro checks 7. HOB elevation, maintain normothermia, avoid agitation 8. GI prophylaxis 9. Mechanical DVT prophylaxis Son on his way from [place]. Per patient's wishes expressed by son to RN his father would not want to be intubated or resuscitated. Bobby Medrano MD Aug 08, 2017 11:58
--- NOTE | 2017-08-08 13:44 | PD.CONS ---
Consult Service Palliative Care . Consult Requested By Dr. Medrano . Primary Care Physician Aishwarya Powell DO . Reason for Consultation a. To assist with evaluation and management of symptoms including: pain; dyspnea; encephalopathy b. To assist medical decision maker(s) with: better understanding of current medical conditions; weighing benefits/burdens of medical treatment options; making medical treatment decisions. . HPI History of Present Illness Mr. Cai is an 87-year-old male with a known medical history including atrial fibrillation (on Zarrella to O); COPD on home O2; lung cancer status post radiation therapy; hypertension; dementia; seizure disorder; and hypothyroidism who was transferred to [facility] from [facility] on 08/07/17 after being diagnosed with an intracranial hemorrhage and needing access to a neurosurgery program. The patient initially presented to the emergency department at [facility] on 07/25/2017 complaining of shortness of breath, productive cough, and progressive weakness. Per family, the patient had been on a slow but steady decline for approximately 2-3 years. However over the last few weeks there had been a more dramatic decline primarily involving balance issues, short term memory issues, and falls. The patient's partner recalls about 3-5 falls most of which were sliding to the ground. There were no witnessed head injuries accompanying any of the witnessed falls. When evaluated at [facility], chest x-ray showed infiltrates in the left lower lobe as well as the right upper. He was treated as a COPD exacerbation and pneumonia in an immunocompromised patient. Also, on 08/06/17, the patient was noted to have pulmonary congestion and a BNP level of 2089. He was felt to be in congestive heart failure. During the hospitalization at [facility], increasing lethargy was noted. A CT scan of the head showed a 0.7 cm right subdural hematoma with midline shift. He was transferred to the intensive care unit and given vitamin K and fresh frozen plasma. It was felt the patient should be at a hospital with neurosurgery capabilities. Arrangements were made to admit the patient to Dr. Jasmine' service. The patient was given a dose of Kcentra then transferred here to [facility] on 08/07/17. The patient has had a seizure disorder since approximately age 7. Per family he had a severe pneumonia at that age, received primarily sulfa drugs to have it treated, and apparently developed seizures in some sort of adverse reaction. Seizures have been controlled most of his life. Son believes the last seizure may have been 3 years ago. The patient was diagnosed with lung cancer in 01/2017. He had a 6 cm nodule. 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 He underwent radiation therapy but shows not to undergo chemotherapy. Per family, the patient was being followed and there had been no evidence of cancer progression. On arrival, the patient was lethargic and confused but could move all extremities to commands. He has since declined and is now stuporous, nonverbal , unable to follow commands. Since arrival, the patient has been seen by neurosurgery; critical care; and neurology. Neurosurgery did not feel there was any indication for surgical intervention. EEG showed mild slowing bilaterally (possibly left more than right) but no epileptiform features. Neurosurgery had a repeat CT of the head performed on 08/07/17. Radiology read this as chronic right sided subdural hygroma approximately 1.2 cm separation. There is mass effect and midline shift to the left by approximately 5 mm. No acute intracranial hemorrhage. Per neurosurgery, this was unchanged from the CT imaging done at [facility]. At time of my visit the patient does not awaken to voice or exam. He is not withdrawing to noxious stimulus. . Function/Cognitive Trajectory I was able to speak by phone with both the patient's significant other and the patient's son. As noted above, they report a slow decline for several years. This has accelerated during the weeks leading up to this months hospitalizations. The patient had become progressively weak with increasing balance issues and worsening short term memory. The patient is normally on home O2 every night and during the day on an as-needed basis. He normally uses nebulizer treatments 3-4 times per day. He normally walks with a walker. His ability to ambulate has declined significantly in the days leading up to hospitalization. Over the last months he was rarely getting out of the house other than to doctor's appointments. The patient's partner, Ann, was not aware of any significant weight loss. She noted that he has a productive cough most of the time but that was not a new problem for him. . Review of Systems ROS Limitations: Clinical Condition (patient is stuporous. Does not awaken to voice or exam. He cannot provide his own review of systems. Review of systems taken as well as possible from available family and from the medical record.) Constitutional: COMPLAINS OF: Fatigue, Pain, Generalized weakness, DENIES: Fever, Weight gain, Weight loss, Dizziness, Change in appetite Endocrine: DENIES: Polydipsia, Polyuria, Polyphagia Eyes: COMPLAINS OF: Vision loss (wears glasses) Ears, nose, mouth, throat: COMPLAINS OF: Hearing loss (mild), DENIES: Epistaxis Respiratory: COMPLAINS OF: Cough, Wheezing, Sputum production, Shortness of breath, DENIES: Apneas, Snoring, Hemoptysis Cardiovascular: COMPLAINS OF: Dyspnea on Exertion, Lower Extremity Edema, DENIES: Chest pain, Palpitations, Syncope Gastrointestinal: COMPLAINS OF: Diarrhea, DENIES: Constipation, Nausea, Vomiting Genitourinary: COMPLAINS OF: Hesitancy, Decreased stream, DENIES: Urinary incontinence, Urgency, Dysuria Musculoskeletal: COMPLAINS OF: Joint pain, Back pain Integumentary: COMPLAINS OF: Rash, DENIES: Pruritus Hematologic/Lymphatics: COMPLAINS OF: Bruising Neurologic: COMPLAINS OF: Abnormal gait, Headache, Seizures, Poor Balance, DENIES: Paresthesias, Tremor Psychiatric: COMPLAINS OF: Confusion, DENIES: Anxiety, Depression Other ROS: * Wears dentures * Has had recent falls Past Family Social History Coded Allergies: No Known Allergies (Unverified , 08/07/17) Past Medical History Hypertension Atrial fibrillation on Xarelto COPD -- normally on O2 every night and on an as-needed basis during the day. 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 Patient treated with radiation therapy but declined chemotherapy Seizure disorder -- seizure disorder since age 7 when patient had severe pneumonia and may have had a drug reaction to sulfa drugs. Last seizure thought to be approximately 3 years ago Mild dementia--patient's dementia is mostly been characterized by short term memory deficits. He was still able to take care of most of his ADLs and was certainly recognizing left ones. Hypothyroidism Gout . Past Surgical History Colonoscopy Hernia repair Mastoid and middle ear procedure Tonsillectomy Vasectomy . Reported Medications Albuterol DuoNeb Allopurinol Diltiazem Aricept Fluticasone Keppra Levothyroxine Phenobarbital Xarelto Potassium chloride Torsemide . Current Medications Medications (Trade) Dose Ordered Sig/Elda Route Start Time Stop Time Status Last Admin Sodium Chloride 1,000 ml @ 84 mls/hr [id number] IV 08/07/17 02:36 08/07/17 20:48 (NS Flush) 2 ml UNSCH PRN IV FLUSH 08/07/17 02:45 (NS Flush) 2 ml BID IV FLUSH 08/07/17 09:00 08/08/17 10:18 (Tylenol) 650 mg Q6H PRN PO 08/07/17 02:45 (Morphine Inj) 2 mg Q2H PRN IV PUSH 08/07/17 02:45 (Pepcid Inj) 20 mg Q12HR IV PUSH 08/07/17 09:00 08/08/17 10:18 (Ativan Inj) 1 mg Q1H PRN IV PUSH 08/07/17 02:45 08/07/17 14:42 (Zofran Inj) 4 mg Q6H PRN IV PUSH 08/07/17 02:45 (Duoneb Neb) 1 ampule Q6HR NEB INH 08/07/17 04:00 08/08/17 09:07 (Duoneb Neb) 1 ampule Q2HR NEB PRN INH 08/07/17 02:45 Miscellaneous Information 1 [id number] XX 08/07/17 02:45 (Chlorhexidine 2% Cloth) 3 pack Taper DAILY@04 TOP 08/07/17 04:00 08/03/18 03:59 (Chlorhexidine 2% Cloth) 3 pack UNSCH PRN TOP 08/07/17 02:45 (Serena-Colace) 1 tab BID PO 08/07/17 09:00 08/07/17 09:57 (Milk Of Magnesia Liq) 30 ml Q12H PRN PO 08/07/17 02:45 (Senokot) 17.2 mg Q12H PRN PO 08/07/17 02:45 (Dulcolax Supp) 10 mg DAILY PRN RECTAL 08/07/17 02:45 (Lactulose Liq) 30 ml DAILY PRN PO 08/07/17 02:45 Levetriacetam 100 ml @ 400 mls/hr Q12HR IV 08/07/17 09:00 08/08/17 10:18 (Zyloprim) 300 mg DAILY PO 08/07/17 09:00 08/07/17 09:57 (Cardizem) 60 mg Q6HR PO 08/07/17 06:00 08/08/17 05:34 (Aricept) 10 mg HS PO 08/07/17 21:00 (Breo Ellipta 200-25 Inh) 1 puff DAILY INH 08/07/17 09:00 08/07/17 09:56 (Synthroid) 100 mcg DAILY@0700 PO 08/07/17 07:00 08/08/17 05:34 Piperacillin Sod/ Tazobactam Sod 100 ml @ 200 mls/hr Q6H IV 08/07/17 03:00 08/08/17 10:17 . Family History Patient's mother at approximately age 89. She developed diabetes late in age. Patient's father suffered a stroke in his 50s and was severely debilitated. He lived in a shelter for approximately 15 years before dying. One of the patient's son's of complications of diabetes. Another son from hepatitis C. No known family history of cancer. . Substance Use Tobacco: Patient had an [id number] history of smoking. Alcohol: Patient drank 2 drinks a day throughout his life. No history of abuse. Prescription med abuse: No known prescription medication abuse. Illicits: No known use of illicits. . Psychosocial History Patient is originally from [place]. He lived in [place] several years before ultimately moving to [place]. Completed high school and some college. Patient is a [place] . 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 At times he worked for [employer], and [employer]. 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 He was an avid traveler and frequently went to [place]. He also enjoyed racing cars. Patient was once. His of cancer. He has a partner of 25 years -- Annraeann Elizabeth -- who he lives with. The patient had 3 children. The patient's son Jose of complications of diabetes. Son-- Lexx -- of hepatitis C. The patient's remaining son -- Ermias Cai -- lives in [facility]. . Spiritual/Cultural Factors Patient comes from a Congregation tradition. Son reports that his father is "a believer." Though the patient does not belong to a local ethel group, son believes he would appreciate ibm websphere commerce developer visits. . Living Will: Never completed Health Care Surrogate: Never completed Durable Power of Energy Scheduler: Never completed Date completed: As far as family knows, no advance directives have been completed. . Health Care Surrogate(s): As far as family knows, there is no written designation of healthcare surrogate. . Documented care wishes: As far as family knows, there've been no documented health care preferences/ wishes/goals. . Today's verbally stated goals: Patient is unable to communicate his health care goals/wishes/preferences. It is doubtful he will ever be able to do so. . Family/friends goals: Patient's son and patient's partner both feel strongly that the patient would not want any resuscitation attempts. Specifically he would not want chest compressions; shock; intubation; mechanical ventilation. Family is desiring aggressive care short of resuscitation at least until the son arrives. . Ethical and Legal Issues Patient is incapacitated. At this point there is no reasonable probability that he will regain capacity to make his own healthcare decisions. As there is no written designation of healthcare surrogate that we are aware of, proxy decision-making would fall to the patient's surviving son--Ermias Cai . . Physical Exam Vital Signs Date Time Temp Pulse Resp B/P (MAP) Pulse Ox O2 Delivery O2 Flow Rate FiO2 08/08/17 12:00 113 08/08/17 12:00 98.4 111 35 142/65 (90) 96 08/08/17 10:00 116 08/08/17 09:08 99 Simple Mask 10.00 08/08/17 08:00 105 08/08/17 08:00 98.2 102 30 133/64 (87) 100 08/08/17 07:00 100 Simple Mask 9.00 08/08/17 06:00 108 08/08/17 04:52 94 Simple Mask 9.00 08/08/17 04:00 97.5 108 20 137/76 (96) 100 08/08/17 04:00 106 08/08/17 02:00 96 08/08/17 00:00 108 08/08/17 00:00 97.4 108 29 138/89 (105) 95 08/07/17 22:00 102 08/07/17 20:50 95 Nasal Cannula 3.00 08/07/17 20:00 90 08/07/17 20:00 97.1 90 25 121/62 (81) 100 08/07/17 19:00 98 Nasal Cannula 5.00 08/07/17 18:00 81 08/07/17 16:00 88 08/07/17 16:00 99.0 82 16 109/62 (78) 99 08/07/17 14:00 96 . 08/08/17 08/09/17 19:00 07:00 Intake Total 200 ml Balance 200 ml IV Total 200 ml . Exam CONSTITUTIONAL/GENERAL: This is an adequately nourished patient, unarousable, but comfortable appearing in an SICU bed. TUBES/LINES/DRAINS: Peripheral IV; soft restraints; O2 via mask SKIN: No jaundice or lesions. Ecchymoses on upper extremities. There is a erythematous macular rash involving much of the lower extremities. No wounds seen anteriorly. Skin temperature appropriate. Not diaphoretic. HEAD: Atraumatic. Normocephalic. EYES: Pupils equal and round and reactive but sluggish. Unable to evaluate extraocular motions.. No scleral icterus. No injection or drainage. Fundi not examined. ENT: Unable to evaluate hearing. Nose without bleeding or purulent drainage. Throat without visible erythema, exudates, masses, or lesions. NECK: Trachea midline. Supple, nontender. No palpable thyroid enlargement or nodularity. CARDIOVASCULAR: Irregularly irregular rhythm with rate of 116. Without murmurs , gallops, or rubs. No JVD. Peripheral pulses symmetric. RESPIRATORY/CHEST: Symmetric, unlabored respirations. Good air movement in upper lung snowden. Breath sounds greatly diminished at bases but equal bilaterally. No wheezes, rales, or rhonchi. GASTROINTESTINAL: Abdomen soft, non-tender, nondistended. No hepato-splenomegaly , or palpable masses. No guarding. Bowel sounds present. GENITOURINARY: Without palpable bladder distension. MUSCULOSKELETAL: Extremities without clubbing, cyanosis. There is prominent lower extremity edema left greater than right. No joint tenderness or effusion noted. No calf tenderness. No mottling or clubbing. LYMPHATICS: No palpable cervical or supraclavicular adenopathy. NEUROLOGICAL: Sleeping/stuporous. Not withdrawing to noxious stimulus. No spontaneous movements noted. Unable to follow simple commands. No attempted vocalizations. PSYCHIATRIC: Unable to assess psychiatric status due to level of responsiveness. . Diagnostic Tests Laboratory Laboratory Tests Test 08/07/17 03:26 08/07/17 04:29 08/07/17 18:26 08/08/17 05:09 Nasal Screen MRSA (PCR) MRSA NOT DETECTED (NOT White Blood Count 6.1 TH/MM3 (4.0-11.0) 7.5 TH/MM3 (4.0-11.0) Red Blood Count 3.20 MIL/MM3 (4.50-5.90) 3.22 MIL/MM3 (4.50-5.90) Hemoglobin 11.2 GM/DL (13.0-17.0) 10.6 GM/DL (13.0-17.0) Hematocrit 32.9 % (39.0-51.0) 33.6 % (39.0-51.0) Mean Corpuscular Volume 102.9 FL (80.0-100.0) 104.4 FL (80.0-100.0) Mean Corpuscular Hemoglobin 35.0 PG (27.0-34.0) 32.9 PG (27.0-34.0) Mean Corpuscular Hemoglobin Concent 34.0 % (32.0-36.0) 31.5 % (32.0-36.0) Red Cell Distribution Width 17.9 % (11.6-17.2) 18.2 % (11.6-17.2) Platelet Count 140 TH/MM3 (150-450) 128 TH/MM3 (150-450) Mean Platelet Volume 8.2 FL (7.0-11.0) 8.7 FL (7.0-11.0) Neutrophils (%) (Auto) 79.9 % (16.0-70.0) 79.3 % (16.0-70.0) Lymphocytes (%) (Auto) 8.9 % (9.0-44.0) 9.0 % (9.0-44.0) Monocytes (%) (Auto) 9.6 % (0.0-8.0) 9.4 % (0.0-8.0) Eosinophils (%) (Auto) 1.2 % (0.0-4.0) 1.4 % (0.0-4.0) Basophils (%) (Auto) 0.4 % (0.0-2.0) 0.9 % (0.0-2.0) Neutrophils # (Auto) 4.8 TH/MM3 (1.8-7.7) 6.0 TH/MM3 (1.8-7.7) Lymphocytes # (Auto) 0.5 TH/MM3 (1.0-4.8) 0.7 TH/MM3 (1.0-4.8) Monocytes # (Auto) 0.6 TH/MM3 (0-0.9) 0.7 TH/MM3 (0-0.9) Eosinophils # (Auto) 0.1 TH/MM3 (0-0.4) 0.1 TH/MM3 (0-0.4) Basophils # (Auto) 0.0 TH/MM3 (0-0.2) 0.1 TH/MM3 (0-0.2) CBC Comment DIFF FINAL DIFF FINAL Differential Comment Prothrombin Time 12.7 SEC (9.8-11.6) 15.8 SEC (9.8-11.6) Prothromb Time International Ratio 1.3 RATIO 1.6 RATIO Blood Urea Nitrogen 17 MG/DL (7-18) 17 MG/DL (7-18) Creatinine 0.79 MG/DL (0.60-1.30) 0.67 MG/DL (0.60-1.30) Random Glucose 88 MG/DL (74-106) 82 MG/DL (74-106) Total Protein 7.5 GM/DL (6.4-8.2) 7.2 GM/DL (6.4-8.2) Albumin 3.1 GM/DL (3.4-5.0) 3.0 GM/DL (3.4-5.0) Calcium Level 8.9 MG/DL (8.5-10.1) 8.8 MG/DL (8.5-10.1) Phosphorus Level 2.3 MG/DL (2.5-4.9) 2.1 MG/DL (2.5-4.9) Magnesium Level 2.3 MG/DL (1.5-2.5) 2.4 MG/DL (1.5-2.5) Alkaline Phosphatase 165 U/L (45-117) 157 U/L (45-117) Aspartate Amino Transf (AST/SGOT) 25 U/L (15-37) 19 U/L (15-37) Alanine Aminotransferase (ALT/SGPT) 25 U/L (12-78) 23 U/L (12-78) Total Bilirubin 0.4 MG/DL (0.2-1.0) 0.4 MG/DL (0.2-1.0) Sodium Level 139 MEQ/L (136-145) 143 MEQ/L (136-145) Potassium Level 3.9 MEQ/L (3.5-5.1) 3.9 MEQ/L (3.5-5.1) Chloride Level 99 MEQ/L (98-107) 104 MEQ/L (98-107) Carbon Dioxide Level 34.7 MEQ/L (21.0-32.0) 33.0 MEQ/L (21.0-32.0) Anion Gap 5 MEQ/L (5-15) 6 MEQ/L (5-15) Estimat Glomerular Filtration Rate 93 ML/MIN (>89) 112 ML/MIN (>89) Phenobarbital Level 49.0 MCG/ML (15.0-40.0) 44.7 MCG/ML (15.0-40.0) 43.9 MCG/ML (15.0-40.0) Erythrocyte Sedimentation Rate 57 mm/hr (0-20) Ammonia 29 MCMOL/L (11-32) C-Reactive Protein 4.00 MG/DL (0.00-0.30) Activated Partial Thromboplast Time 34.8 SEC (24.3-30.1) . Result Diagram: 08/08/17 0509 08/08/17 0509 Microbiology Microbiology Date/Time Source Procedure Growth Status 08/07/17 04:29 Blood Peripheral Aerobic Blood Culture - Preliminary NO GROWTH IN 1 DAY Resulted 08/07/17 04:29 Blood Peripheral Anaerobic Blood Culture - Preliminary NO GROWTH IN 1 DAY Resulted 08/07/17 04:20 Blood Peripheral Aerobic Blood Culture - Preliminary NO GROWTH IN 1 DAY Resulted 08/07/17 04:20 Blood Peripheral Anaerobic Blood Culture - Preliminary NO GROWTH IN 1 DAY Resulted . Imaging Last Impressions Chest X-Ray 08/07/17 0600 Signed Impressions: Service Date/Time: Monday, August 07, 2017 05:25 - CONCLUSION: Bilateral infiltrates, right upper and left lower, and probable right pleural effusion. Aden Ramirez MD Head CT 08/07/17 0000 Signed Impressions: Service Date/Time: Monday, August 07, 2017 12:14 - CONCLUSION: 1. Chronic right-sided subdural hygroma approximately 1.2 cm of separation. 2. There is mass effect and midline shift to the left by approximately 5 mm. 3. No acute intracranial hemorrhage. 4. Bilateral cortical atrophy. Andre Michele MD . Patient/Family Conference Present at Family Conference: Spoke on telephone with son for approximately 20 minutes. Spoke by telephone on 2 separate occasions to patient's domestic partner-- Ann. Total time on phone with her was approximately 20 minutes . Family Conference Time (mins): 40 Issues Discussed: * Palliative care role, purpose, approach * Additional medical, psychosocial, and spiritual history * Patients general health, functional status, and cognitive changes in the months leading up to the current hospitalization * Family understanding of the current medical problems * Family understanding of prognosis * Patients goals of care as best understood from conversations and/or values * Current medical treatment options and benefits/burdens of those options * Likely scenarios comparing ongoing aggressive care with a transition to comfort measures only * Questions answered to the best of my ability . Assessment and Plan Disease Oriented Problem List: (1) SDH (subdural hematoma) Comment: Subdural hematoma was first noted when patient was at [facility]. Initial CT scan of the head showed a 0.7 cm right subdural hematoma with midline shift. . (2) Squamous carcinoma of lung Comment: The patient was diagnosed with lung cancer in 01/2017. He had a 6 cm nodule. 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 He underwent radiation therapy but shows not to undergo chemotherapy. Per family, the patient was being followed and there had been no evidence of cancer progression. . (3) COPD (chronic obstructive pulmonary disease) (4) CHF (congestive heart failure) Comment: On 08/06/17, while at [facility], the patient was noted to have pulmonary congestion and a BNP level of 2089. He was felt to be in congestive heart failure. According to family, there has been no prior diagnosis of congestive heart failure. (5) Hypertension (6) Hypothyroid (7) Afib (8) Pneumonia Comment: Cultures have been negative. . (9) Seizure Comment: The patient has had a seizure disorder since approximately age 7. Per family he had a severe pneumonia at that age, received primarily sulfa drugs to have it treated, and apparently developed seizures in some sort of adverse reaction. Seizures have been controlled most of his life. Son believes the last seizure may have been 3 years ago. . Symptom Scale: (1) Pain 0-10 Scale: Unable to quantify Comment: Patient had been complaining of back pain following one of his falls. Movement seems to exacerbate this. Other current sources of pain might include prolonged bedbound status; vascular access catheters; restraints; O2 mask. Patient is not appearing uncomfortable at this time and nursing pain scores are at 0. . (2) Dyspnea 0-10 Scale: Unable to quantify Comment: Dyspnea: Patient known to have underlying COPD. He now has a likely pneumonia. Respirations could possibly also be impacted from intracranial bleed acting centrally. Family is indicated the patient would not want to be intubated. Dyspnea currently being managed with oxygen. We'll want to minimize use of sedating medications while waiting to see if patient's neurologic status improves. . (3) Encephalopathy 0-10 Scale: Unable to quantify Comment: Encephalopathy: Patient had underlying dementia and now with a significant subdural hematoma of unknown age. Patient had been having poor balance and increasing memory deficits for weeks and the symptoms may have been due to the bleed. Pneumonia may also be exacerbating patient's level of encephalopathy. The patient was lethargic but able to follow commands upon arrival at this hospital. Since then has become quite stuporous and unable to follow commands. . Pertinent Non-Medical Issues Psychosocial: , but with a new do best at partner of 25 years. Had 3 children, 2 are . The patient's son -- Ermias Cai--is expected to arrive from [place], [place], the evening of 08/08/17. Patient is a [place] [employer] . 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 Spiritual: From the [employer] background. Not a member of a local ethel community. Son believes he would appreciate ibm websphere commerce developer visits. Legal: No known written advance directive. Without a written designation of healthcare surrogate, the patient's son would be the appropriate proxy decision- maker for healthcare. Ethical issues impacting care: Patient is incapacitated to make his own healthcare decisions. There is no reasonable probability that he will regain such capacity. . Important Contacts * Ermias Cai (son and proxy) -- C: [phone]; H: [phone] * Ann Elizabeth (domestic partner of 25 years) -- [phone] . Prognosis This 87-year-old male with underlying O2 dependent COPD, lung cancer, and progressive dementia, was initially admitted for respiratory symptoms and felt to have pneumonia and/or CHF. He became lethargic and CT imaging of the brain has now revealed a subdural hematoma with midline shift. The patient has become stuporous. Neurosurgery does not believe the patient would be helped by any surgical intervention. Family does not feel the patient would want intubation, mechanical ventilation, shock, or chest compressions. Unless this patient awakens soon, is likely within hours to days. . Code Status: No Code Plan == Code Status: NO CODE. I spoke on phone with both patient's surviving son (Ermias) and patients domestic partner (Ann Elizabeth) on 08/08/17. Both are in agreement that patient would not want intubation, mechanical ventilation, chest compressions or shock given his current status. == Medical decision making: patient is incapacitated to make his own health care decision and there is no reasonable probability that he will regain capacity to do so. There is no known designation of health care surrogacy. The son, Ermias Cai, would therefore be the proxy under the [place] statutes. == Goals of medical treatment: Son is flying in from [facility]. he is expected to arrive around 8 pm tonight. Family would like aggressive measures (short of resuscitation) to keep patient alive at least until the son arrives. == Symptoms: * Pain: Patient had been complaining of back pain following one of his falls. Movement seems to exacerbate this pain. Other current sources of pain might include prolonged bedbound status; vascular access catheters; restraints; O2 mask. Patient is not appearing uncomfortable at this time and nursing pain scores are at 0. There are currently orders for acetaminophen as well as IV morphine sulfate on the chart. These have not been used. No further recommendations at this time. * Dyspnea: Patient known to have underlying COPD. He now has a likely pneumonia. Respirations could possibly also be impacted from intracranial bleed acting centrally. Family is indicated the patient would not want to be intubated. Dyspnea currently being managed with oxygen. We'll want to minimize use of sedating medications while waiting to see if patient's neurologic status improves. * Encephalopathy: Patient had underlying dementia and now with a significant subdural hematoma of unknown age. Patient had been having poor balance and increasing memory deficits for weeks and the symptoms may have been due to the bleed. Pneumonia may also be exacerbating patient's level of encephalopathy. The patient was lethargic but able to follow commands upon arrival at this hospital. Since then has become quite stuporous and unable to follow commands. == Son (proxy) should be arriving this evening. Palliative care will try to meet with son tomorrow to re-visit treatment goals . Son is aware of the severity of illness and understands that patient could come soon. == Palliative care will continue to follow to assist with symptom management and to further clarify goals of medical treatment as the clinical course evolves. . Time Spent Total Floor Time (mins): 80 (Total floor time included chart review; patient examination; collaboration with primary nurse; the above-referenced telephone calls to family; discussion with Dr. Medrano; and documentation.) Face to Face Time (mins): 10 >50% Counseling/Coord of Care: Yes Thank you for the opportunity to participate in the care of Mr. Cai. . Attestation To help prompt me to consider important information that might be impacting today's encounter and assessment, information from prior notes written by myself or my colleagues may have been "brought forward" into today's note. My signature on this note, however, is an attestation that I personally performed the exam, history, and/or decision-making noted today, and, unless otherwise indicated, the interactions with patient, family, and staff as well as the review of records all occurred today. I also attest that the listed assessment and stated plan reflect my best clinical judgment today based on the combination of historical information, prior notes, and today's exam/ interactions. When time spent is documented, it refers only to time spent today by the signer, or if indicated, combined time spent today by collaborating physician/nurse practitioner. . Saeid Walh MD Aug 08, 2017 13:44
[2017-08-08] MEDS: SODIUM CHLOR 0.9% 1000 ML INJ 1,000 ML IV SCH (14:21)
--- NOTE | 2017-08-08 14:31 | HHI.NSPN ---
(Tete Hogue) Note Status Status: Progress Note (Tete Hogue) Interval History Interval History Mr. Cai is a 87-year-old male. History was obtained mostly from his medical records as the patient cannot give much medical history due to his current clinical condition. The patient has history of dementia, hypertension, atrial fibrillation on Xarelto, lung cancer, and COPD. He apparently presented to [facility] a couple weeks ago for pneumonia. During his hospitalization he was noted to become more lethargic and a CT Brain showed a 0.7 cm right subdural hematoma with midline shift and thus was transferred to [place] for neurosurgical evaluation. Prior to his transfer however he was reported to have received a dose of K-Centra. He is currently in the intensive care unit, late morning today prior to seeing the patient, he was noted to have a change in mental status. He underwent a stat CT scan of his head which showed a chronic right subdural hygroma with 5 mm midline shift. The patient is currently confused, lethargic. He is not consistently following commands. 08/08: patient seen this am during rounds. nursing reports mental status worse - appearing more obtunded, intermittently restless, moaning. On 02 via face mask. EEG reports slowing, no epileptiform features seen. (Tete Hogue) Labs, Micro, & Vital Signs Results Date Time Temp Pulse Resp B/P (MAP) Pulse Ox O2 Delivery O2 Flow Rate FiO2 08/08/17 12:00 113 08/08/17 12:00 98.4 111 35 142/65 (90) 96 08/08/17 10:00 116 08/08/17 09:08 99 Simple Mask 10.00 08/08/17 08:00 105 08/08/17 08:00 98.2 102 30 133/64 (87) 100 08/08/17 07:00 100 Simple Mask 9.00 08/08/17 06:00 108 08/08/17 04:52 94 Simple Mask 9.00 08/08/17 04:00 97.5 108 20 137/76 (96) 100 08/08/17 04:00 106 08/08/17 02:00 96 08/08/17 00:00 108 08/08/17 00:00 97.4 108 29 138/89 (105) 95 08/07/17 22:00 102 08/07/17 20:50 95 Nasal Cannula 3.00 08/07/17 20:00 90 08/07/17 20:00 97.1 90 25 121/62 (81) 100 08/07/17 19:00 98 Nasal Cannula 5.00 08/07/17 18:00 81 08/07/17 16:00 88 08/07/17 16:00 99.0 82 16 109/62 (78) 99 08/09/17 07:00 Intake Total 200 ml Balance 200 ml Constitutional Vital Signs Date Time Temp Pulse Resp B/P (MAP) Pulse Ox O2 Delivery O2 Flow Rate FiO2 08/08/17 12:00 113 08/08/17 12:00 98.4 111 35 142/65 (90) 96 08/08/17 10:00 116 08/08/17 09:08 99 Simple Mask 10.00 08/08/17 08:00 105 08/08/17 08:00 98.2 102 30 133/64 (87) 100 08/08/17 07:00 100 Simple Mask 9.00 08/08/17 06:00 108 08/08/17 04:52 94 Simple Mask 9.00 08/08/17 04:00 97.5 108 20 137/76 (96) 100 08/08/17 04:00 106 08/08/17 02:00 96 08/08/17 00:00 108 08/08/17 00:00 97.4 108 29 138/89 (105) 95 08/07/17 22:00 102 08/07/17 20:50 95 Nasal Cannula 3.00 08/07/17 20:00 90 08/07/17 20:00 97.1 90 25 121/62 (81) 100 08/07/17 19:00 98 Nasal Cannula 5.00 08/07/17 18:00 81 08/07/17 16:00 88 08/07/17 16:00 99.0 82 16 109/62 (78) 99 08/09/17 07:00 Intake Total 200 ml Balance 200 ml (Tete Hogue) Review of Systems ROS Limitations: Clinical Condition, Altered Mental Status (Tete Hogue) Physical Exam The patient is lethargic, he moans when attempting to ask him questions. He does not follow commands. Does not open eyes. Cranial nerve examination: pupils 4 mm bilaterally reactive. Neck is soft and supple Motor: spontaneous movements in both arms and legs Ext: diffuse swelling Deep tendon reflexes are 1+. There is a bilateral plantar flexion response. There is no clonus. Heart: Atrial Fibrillation via monitor Lung: wheezing to right lung Cerebellar examination is limited due to the patient condition Skin: warm and dry (Tete Hogue) The patient is lethargic, he moans when attempting to ask him questions. He does not follow commands. Does not open eyes. Cranial nerve examination: pupils 4 mm bilaterally reactive. Neck is soft and supple Motor: spontaneous movements in both arms and legs Ext: diffuse swelling Deep tendon reflexes are 1+. There is a bilateral plantar flexion response. There is no clonus. Heart: Atrial Fibrillation via monitor Lung: wheezing to right lung Cerebellar examination is limited due to the patient condition Skin: warm and dry (Stew Jasmine MD) Medications Current Medications Current Medications Medications (Trade) Dose Ordered Sig/Elda Route PRN Reason Start Time Stop Time Status Last Admin Dose Admin Sodium Chloride 1,000 ml @ 84 mls/hr [id number] IV 08/07/17 02:36 08/07/17 20:48 Sodium Chloride (NS Flush) 2 ml UNSCH PRN IV FLUSH FLUSH AFTER USING IV ACCESS 08/07/17 02:45 Sodium Chloride (NS Flush) 2 ml BID IV FLUSH 08/07/17 09:00 08/08/17 10:18 Acetaminophen (Tylenol) 650 mg Q6H PRN PO PAIN 1-5 AND/OR FEVER >101F 08/07/17 02:45 Morphine Sulfate (Morphine Inj) 2 mg Q2H PRN IV PUSH PAIN SCALE 6 TO 10 08/07/17 02:45 Famotidine (Pepcid Inj) 20 mg Q12HR IV PUSH 08/07/17 09:00 08/08/17 10:18 Lorazepam (Ativan Inj) 1 mg Q1H PRN IV PUSH seizure 08/07/17 02:45 08/07/17 14:42 Ondansetron HCl (Zofran Inj) 4 mg Q6H PRN IV PUSH NAUSEA OR VOMITING 08/07/17 02:45 Albuterol/ Ipratropium (Duoneb Neb) 1 ampule Q6HR NEB INH 08/07/17 04:00 08/08/17 09:07 Albuterol/ Ipratropium (Duoneb Neb) 1 ampule Q2HR NEB PRN INH WHEEZING 08/07/17 02:45 Miscellaneous Information 1 Q361D XX 08/07/17 02:45 Chlorhexidine Gluconate (Chlorhexidine 2% Cloth) 3 pack Taper DAILY@04 TOP 08/07/17 04:00 08/03/18 03:59 Chlorhexidine Gluconate (Chlorhexidine 2% Cloth) 3 pack UNSCH PRN TOP HYGIENIC CARE 08/07/17 02:45 Senna/Docusate Sodium (Serena-Colace) 1 tab BID PO 08/07/17 09:00 08/07/17 09:57 Magnesium Hydroxide (Milk Of Magnesia Liq) 30 ml Q12H PRN PO Mild constipation 08/07/17 02:45 Sennosides (Senokot) 17.2 mg Q12H PRN PO Moderate constipation 08/07/17 02:45 Bisacodyl (Dulcolax Supp) 10 mg DAILY PRN RECTAL SEVERE CONSITIPATION/ IF NPO 08/07/17 02:45 Lactulose (Lactulose Liq) 30 ml DAILY PRN PO SEVERE CONSITIPATION/ IF PO 08/07/17 02:45 Levetriacetam 100 ml @ 400 mls/hr Q12HR IV 08/07/17 09:00 08/08/17 10:18 Allopurinol (Zyloprim) 300 mg DAILY PO 08/07/17 09:00 08/07/17 09:57 Diltiazem HCl (Cardizem) 60 mg Q6HR PO 08/07/17 06:00 08/08/17 05:34 Donepezil HCl (Aricept) 10 mg HS PO 08/07/17 21:00 Fluticasone/ Vilanterol (Breo Ellipta 200-25 Inh) 1 puff DAILY INH 08/07/17 09:00 08/07/17 09:56 Levothyroxine Sodium (Synthroid) 100 mcg DAILY@0700 PO 08/07/17 07:00 08/08/17 05:34 Piperacillin Sod/ Tazobactam Sod 100 ml @ 200 mls/hr Q6H IV 08/07/17 03:00 08/08/17 10:17 (Tete Hgoue) Current Medications Current Medications Sodium Chloride 1,000 ml @ 84 mls/hr [id number] IV Last administered on at 20:48; Start 08/07/17 at 02:36; Stop 08/09/17 at 05:34; Status DC Sodium Chloride (NS Flush) 2 ml UNSCH PRN IV FLUSH FLUSH AFTER USING IV ACCESS ; Start 08/07/17 at 02:45; Stop 08/09/17 at 05:34; Status DC Sodium Chloride (NS Flush) 2 ml BID IV FLUSH Last administered on 08/08/17at 20: 10; Start 08/07/17 at 09:00; Stop 08/09/17 at 05:34; Status DC Acetaminophen (Tylenol) 650 mg Q6H PRN PO PAIN 1-5 AND/OR FEVER >101F; Start at 02:45; Stop 08/09/17 at 05:34; Status DC Morphine Sulfate (Morphine Inj) 2 mg Q2H PRN IV PUSH PAIN SCALE 6 TO 10; Start 08/07/17 at 02:45; Stop 08/09/17 at 05:34; Status DC Famotidine (Pepcid Inj) 20 mg Q12HR IV PUSH Last administered on 08/08/17at 20: 10; Start 08/07/17 at 09:00; Stop 08/09/17 at 05:34; Status DC Lorazepam (Ativan Inj) 1 mg Q1H PRN IV PUSH seizure Last administered on at 14:42; Start 08/07/17 at 02:45; Stop 08/09/17 at 05:34; Status DC Ondansetron HCl (Zofran Inj) 4 mg Q6H PRN IV PUSH NAUSEA OR VOMITING; Start at 02:45; Stop 08/09/17 at 05:34; Status DC Albuterol/ Ipratropium (Duoneb Neb) 1 ampule Q6HR NEB INH Last administered on 08/08/17at 20:46; Start 08/07/17 at 04:00; Stop 08/09/17 at 05:34; Status DC Albuterol/ Ipratropium (Duoneb Neb) 1 ampule Q2HR NEB PRN INH WHEEZING; Start 08/07/17 at 02:45; Stop 08/09/17 at 05:34; Status DC Miscellaneous Information 1 Q361D XX ; Start 08/07/17 at 02:45; Stop 08/09/17 at 05:34; Status DC Chlorhexidine Gluconate (Chlorhexidine 2% Cloth) 3 pack Taper DAILY@04 TOP ; Start 08/07/17 at 04:00; Stop 08/09/17 at 05:34; Status DC Chlorhexidine Gluconate (Chlorhexidine 2% Cloth) 3 pack UNSCH PRN TOP HYGIENIC CARE; Start 08/07/17 at 02:45; Stop 08/09/17 at 05:34; Status DC Senna/Docusate Sodium (Serena-Colace) 1 tab BID PO Last administered on at 09:57; Start 08/07/17 at 09:00; Stop 08/09/17 at 05:34; Status DC Magnesium Hydroxide (Milk Of Magnesia Liq) 30 ml Q12H PRN PO Mild constipation ; Start 08/07/17 at 02:45; Stop 08/09/17 at 05:34; Status DC Sennosides (Senokot) 17.2 mg Q12H PRN PO Moderate constipation; Start 08/07/17 at 02:45; Stop 08/09/17 at 05:34; Status DC Bisacodyl (Dulcolax Supp) 10 mg DAILY PRN RECTAL SEVERE CONSITIPATION/ IF NPO; Start 08/07/17 at 02:45; Stop 08/09/17 at 05:34; Status DC Lactulose (Lactulose Liq) 30 ml DAILY PRN PO SEVERE CONSITIPATION/ IF PO; Start 08/07/17 at 02:45; Stop 08/09/17 at 05:34; Status DC Levetriacetam 100 ml @ 400 mls/hr Q12HR IV Last administered on 08/08/17at 20: 10; Start 08/07/17 at 09:00; Stop 08/09/17 at 05:34; Status DC Allopurinol (Zyloprim) 300 mg DAILY PO Last administered on 08/07/17at 09:57; Start 08/07/17 at 09:00; Stop 08/09/17 at 05:34; Status DC Diltiazem HCl (Cardizem) 60 mg Q6HR PO Last administered on 08/08/17at 05:34; Start 08/07/17 at 06:00; Stop 08/09/17 at 05:34; Status DC Donepezil HCl (Aricept) 10 mg HS PO ; Start 08/07/17 at 21:00; Stop 08/09/17 at 05:34; Status DC Fluticasone/ Vilanterol (Breo Ellipta 200-25 Inh) 1 puff DAILY INH Last administered on 08/07/17at 09:56; Start 08/07/17 at 09:00; Stop 08/09/17 at 05:34 ; Status DC Levothyroxine Sodium (Synthroid) 100 mcg DAILY@0700 PO Last administered on at 05:34; Start 08/07/17 at 07:00; Stop 08/09/17 at 05:34; Status DC Phenobarbital (PHENobarbital) 60 mg DAILY PO Last administered on 08/07/17at 09: 57; Start 08/07/17 at 09:00; Stop 08/07/17 at 15:43; Status DC Phenobarbital (PHENobarbital) 90 mg HS PO ; Start 08/07/17 at 21:00; Stop at 21:00; Status DC Vancomycin HCl 1000 mg/Sodium Chloride 250 ml @ 250 mls/hr ONCE ONCE IV Last administered on 08/07/17at 04:46; Start 08/07/17 at 04:00; Stop 08/07/17 at 04:59 ; Status DC Piperacillin Sod/ Tazobactam Sod 100 ml @ 200 mls/hr Q6H IV Last administered on 08/08/17at 20:09; Start 08/07/17 at 03:00; Stop 08/09/17 at 05:34; Status DC (Stew Jasmine MD) Medical Decision Making MDM Remarks 87 year old male with chronic right subdural hygroma - per Dr. Jasmine this does not require surgery Encephalopathy, hx of seizure disorder, ?seizures, EEG: shows no evidence of epileptiform activities (Tete Hogue) Plan Plan Remarks nonsurgical management of subdural hygroma Neurology following for Encephalopathy critical care mgt ok for palliative care consult (Tete Hogue) Attending Statement He remains very encephalopathic Non surgical candidate Continue to defer encephalopathy workup to neurologist The exam, history, and the medical decision-making described in the above note were completed with the assistance of the mid-level provider. I reviewed and agree with the findings presented. I attest that I had a [id number] encounter with the patient on the same day, and personally performed and documented my assessment and findings in the medical record. (Stew Jasmine MD) Tete Hogue Aug 08, 2017 14:31 Stew Jasmine MD Aug 12, 2017 17:46
[2017-08-08] MEDS: CHLORHEXIDINE GLUCONATE 2 % 1 PACK (2 CLOTHS) TOP SCH (19:41)
[2017-08-08] MEDS: DONEPEZIL HCL 5 MG TAB PO SCH (19:41)
[2017-08-09] VITALS: BP 80/39; PULSE 86; TEMP 97.4; O2SAT 93
[2017-08-09 02:00] VITALS: PULSE 84
[2017-08-09] MEDS: SODIUM CHLOR 0.9% 1000 ML INJ 1,000 ML IV SCH (02:16)
[2017-08-09] MEDS: DILTIAZEM HCL 60 MG TAB PO SCH ×2 (02:35)
--- NOTE | 2017-08-09 06:52 | HHI.DS ---
Summary Note Date of : Aug 09, 2017 Time Of : 0346 Admission Date Aug 07, 2017 at 02:13 Admitting Diagnosis Diagnosis at Time of : (1) Seizure ICD Code: R56.9 - Unspecified convulsions Diagnosis: Secondary (2) Afib ICD Code: I48.91 - Unspecified atrial fibrillation (3) SDH (subdural hematoma) ICD Code: I62.00 - Nontraumatic subdural hemorrhage, unspecified Diagnosis: Principal (4) Pneumonia ICD Code: J18.9 - Pneumonia, unspecified organism Diagnosis: Principal (5) COPD (chronic obstructive pulmonary disease) ICD Code: J44.9 - Chronic obstructive pulmonary disease, unspecified Diagnosis: Secondary (6) Dyspnea ICD Code: R06.00 - Dyspnea, unspecified Diagnosis: Secondary (7) CHF (congestive heart failure) ICD Code: I50.9 - Heart failure, unspecified Diagnosis: Secondary (8) Hypertension ICD Code: I10 - Essential (primary) hypertension Diagnosis: Secondary (9) Encephalopathy ICD Code: G93.40 - Encephalopathy, unspecified Diagnosis: Secondary (10) Hypothyroid ICD Code: E03.9 - Hypothyroidism, unspecified Diagnosis: Secondary (11) Squamous carcinoma of lung ICD Code: C34.90 - Malignant neoplasm of unspecified part of unspecified bronchus or lung Diagnosis: Secondary (12) Pain ICD Code: R52 - Pain, unspecified Diagnosis: Secondary Brief History 87-year-old very pleasant gentleman with a history of hypertension, atrial fibrillation on Xarelto, COPD, lung cancer presented to emergency department at [facility] on July 25 with shortness of breath, cough and productive yellowish sputum, progressive weakness in the x-ray showing infiltrates in left lower lobes as well as the right upper. He was treated as pneumonia in an immunocompromised patient. While there he was noted to have increasing lethargy , that led to a CT scan of the head which revealed 0.7 cm right subdural hematoma with midline shift. He was transferred to intensive care unit, given vitamin K and FFP's. The case was discussed with [facility] neurosurgeon chemistry quality control technician Dr. Jasmine and the patient has been transferred for high level of care. Prior to transfer he received a dose of Kcentra. CBC/BMP: 08/08/17 0509 08/08/17 0509 Significant Findings Laboratory Tests Test 08/07/17 03:26 08/07/17 04:29 08/07/17 18:26 08/08/17 05:09 Red Blood Count 3.20 MIL/MM3 (4.50-5.90) 3.22 MIL/MM3 (4.50-5.90) Hemoglobin 11.2 GM/DL (13.0-17.0) 10.6 GM/DL (13.0-17.0) Hematocrit 32.9 % (39.0-51.0) 33.6 % (39.0-51.0) Mean Corpuscular Volume 102.9 FL (80.0-100.0) 104.4 FL (80.0-100.0) Mean Corpuscular Hemoglobin 35.0 PG (27.0-34.0) Red Cell Distribution Width 17.9 % (11.6-17.2) 18.2 % (11.6-17.2) Platelet Count 140 TH/MM3 (150-450) 128 TH/MM3 (150-450) Neutrophils (%) (Auto) 79.9 % (16.0-70.0) 79.3 % (16.0-70.0) Lymphocytes (%) (Auto) 8.9 % (9.0-44.0) Monocytes (%) (Auto) 9.6 % (0.0-8.0) 9.4 % (0.0-8.0) Lymphocytes # (Auto) 0.5 TH/MM3 (1.0-4.8) 0.7 TH/MM3 (1.0-4.8) Prothrombin Time 12.7 SEC (9.8-11.6) 15.8 SEC (9.8-11.6) Albumin 3.1 GM/DL (3.4-5.0) 3.0 GM/DL (3.4-5.0) Phosphorus Level 2.3 MG/DL (2.5-4.9) 2.1 MG/DL (2.5-4.9) Alkaline Phosphatase 165 U/L (45-117) 157 U/L (45-117) Carbon Dioxide Level 34.7 MEQ/L (21.0-32.0) 33.0 MEQ/L (21.0-32.0) Phenobarbital Level 49.0 MCG/ML (15.0-40.0) 44.7 MCG/ML (15.0-40.0) 43.9 MCG/ML (15.0-40.0) Erythrocyte Sedimentation Rate 57 mm/hr (0-20) C-Reactive Protein 4.00 MG/DL (0.00-0.30) Mean Corpuscular Hemoglobin Concent 31.5 % (32.0-36.0) Activated Partial Thromboplast Time 34.8 SEC (24.3-30.1) Imaging Last 72 hours Impressions Chest X-Ray 08/07/17 0600 Signed Impressions: Service Date/Time: Monday, August 07, 2017 05:25 - CONCLUSION: Bilateral infiltrates, right upper and left lower, and probable right pleural effusion. Aden Ramirez MD Head CT 08/07/17 0000 Signed Impressions: Service Date/Time: Monday, August 07, 2017 12:14 - CONCLUSION: 1. Chronic right-sided subdural hygroma approximately 1.2 cm of separation. 2. There is mass effect and midline shift to the left by approximately 5 mm. 3. No acute intracranial hemorrhage. 4. Bilateral cortical atrophy. Andre Michele MD Hospital Course He was evaluated by neurosurgery, Dr. Jasmine, and was not felt to be a candidate for surgical intervention. Palliative care consulted. Patient was not capacitated for medical decision-making. Family indicated that patient would desire DNR, including no intubation for respiratory failure. Patients son did arrive and visit patient. Later patient had asystole. ACLS was withheld in order to honor expressed wishes from healthcare decision maker. Patient 08/09/17 at 03:46. Adelina Huffman MD Aug 09, 2017 06:52
== END 2017-08-09 05:27 | disposition expired | DRG 64 ==
LOC: N03A 02:13
PROVIDERS: ADMIT Internal Medicine Critical Care Medicine; ATTEND Internal Medicine Critical Care Medicine
DX: I62.00 Nontraumatic subdural hemorrhage, unspecified (principal); J18.9 Pneumonia, unspecified organism; G93.41 Metabolic encephalopathy; J44.0 Chronic obstructive pulmonary disease with (acute) lower respiratory infection; F03.90 Unspecified dementia, unspecified severity, without behavioral disturbance, psychotic disturbance, mood disturbance, and anxiety; D68.9 Coagulation defect, unspecified; Z99.81 Dependence on supplemental oxygen; I48.91 Unspecified atrial fibrillation; Z79.02 Long term (current) use of antithrombotics/antiplatelets; G40.909 Epilepsy, unspecified, not intractable, without status epilepticus; I10 Essential (primary) hypertension; E03.9 Hypothyroidism, unspecified; I46.9 Cardiac arrest, cause unspecified; Z66 Do not resuscitate; Z91.81 History of falling; Z85.118 Personal history of other malignant neoplasm of bronchus and lung; Z87.891 Personal history of nicotine dependence; Z92.3 Personal history of irradiation
CPT/HCPCS: 36430; 70450; 71045; 80053; 80177; 80184; 82140; 83735; 84100; 85025; 85610; 85652; 85730; 86140; 86900; 86901; 86927; 87040; 87205; 87641; 94640; 94664; 95819; J1953; J2060; J2543; J3370; J7030; P9017